=== PATIENT | female | born 1960 | race Caucasian/White ===

== ENCOUNTER 2022-01-21 11:40 | Emergency (ER) | payer OTHER, SELFPAY ==
--- NOTE | 2022-01-21 11:43 | ED.FEMALEGU ---
HPI - Female Genitourinary General Chief complaint: Urogenital-Female Stated complaint: poss uti nausea and heaving breathing Time Seen by Provider: 01/21/22 11:44 Source: patient, family and RN notes reviewed History of Present Illness HPI Narrative: Patient is a 61-year-old female who presents to the urgent care with a family member with complaints of decreased urinary output and nausea for the last 2 days. Patient denies of any frequency, burning or urgency. Patient has not taken anything [id number] for her symptoms. Patient denies of vomiting but states that she has been gagging . Denies of any fevers. Patient does report of some chills. States that she has had UTIs in the past but not frequent. No other acute complaints. No acute distress noted. Patient aware of the plan of care. Some parts of this dictation were generated by voice recognition software and may contain typographical and/or grammatical inaccuracies. Related Data Home Medications Medication Instructions Recorded Confirmed baclofen 20 mg PO BID 01/21/22 01/21/22 clonidine HCl 0.3 mg PO TID 01/21/22 01/21/22 lisinopril-hydrochlorothiazide 20 tablet PO DAILY 01/21/22 01/21/22 metformin 500 mg PO BID 01/21/22 01/21/22 simvastatin 40 mg PO DAILY 01/21/22 01/21/22 trazodone 50 mg PO HS 01/21/22 01/21/22 Allergies Allergy/AdvReac Type Severity Reaction Status Date / Time No Known Allergies Allergy Verified 01/21/22 11:52 Review of Systems Review of Systems: CONSTITUTIONAL: Denies fever, chills, or sweats. EYES: Denies visual changes, redness, or discharge. ENT: Denies rhinorrhea, congestion, sore throat, or otalgia. CARDIOVASCULAR: Denies chest pain, palpitations, or edema. RESPIRATORY: Denies cough or dyspnea. GASTROINTESTINAL: Reports of nausea without abdominal pain or diarrhea GENITOURINARY: Reports of decreased urinary output SKIN: Denies rash or itching. MUSCULOSKELETAL: Denies back pain, joint pain, or myalgia. NEUROLOGIC: Denies headache, numbness, or weakness. All other systems reviewed are negative, except as documented in HPI. PMFSH Comments At the time of my signature, I reviewed and agree with the nursing past medical, surgical, social, and family history. There is no relevant family history pertinent to the patient complaint. Exam Narrative: GENERAL: This is a well-nourished, well-developed patient, in no apparent distress. HEAD: normocephalic, atraumatic. EYES: PERRL. Sclera clear/white. Vision is grossly intact. EARS: External ears normal NOSE: External nose normal with no obvious nasal discharge, nares without redness, no rhinorrhea. THROAT: Mucous membranes moist NECK: Neck supple CARDIOVASCULAR: Regular rate and rhythm RESPIRATORY: Clear to auscultation. Breath sounds equal bilaterally. No wheezes, rales, or rhonchi. GASTROINTESTINAL: Abdomen soft, non-tender, nondistended. Bowel sounds are active. SKIN: warm, intact with no suspicious lesions or rash, good texture and turgor. NEURO: awake, alert, and oriented to person, place and time. There were no obvious focal neurologic abnormalities. EXTREMITIES: No clubbing, cyanosis, or edema. BACK: Negative bilateral CVA tenderness Course Course Level of Care: Express Care Visit Vital Signs Vital signs: Vital Signs Temperature 101.4 F H 01/21/22 11:49 Pulse Rate 131 H 01/21/22 11:49 Respiratory Rate 20 01/21/22 11:49 Blood Pressure 145/100 H 01/21/22 11:49 Pulse Oximetry 96 01/21/22 11:49 Temperature 101.4 F H 01/21/22 11:49 Pulse Rate 131 H 01/21/22 11:49 Respiratory Rate 20 01/21/22 11:49 Blood Pressure 145/100 H 01/21/22 11:49 Pulse Oximetry 96 01/21/22 11:49 Reviewed-patient is informed that they may have pre-hypertension or hypertension based on a blood pressure reading in the department. I recommend the patient call the primary care provider listed on their discharge instructions or a physician of their choice this week to arrange
[2022-01-21 11:49] VITALS: BP 145/100; PULSE 131; RESP 20; TEMP 38.6; O2SAT 96
== END 2022-01-21 12:17 | disposition home or self-care (01) ==
PROVIDERS: Emergency Provider Nurse Practitioner Family; PCP Internal Medicine
DX: N39.0 Urinary tract infection, site not specified (principal); E78.00 Pure hypercholesterolemia, unspecified; I10 Essential (primary) hypertension; E11.9 Type 2 diabetes mellitus without complications
CPT/HCPCS: 81003; 87077; 87086; 87186; 99213; G0463